=== PATIENT | female | born 1950 | race Caucasian/White ===

== ENCOUNTER → 2020-01-04 15:02 | Outpatient (CLI) | payer MEDICARE, OTHER, SELFPAY ==
--- NOTE | ~2020-01-04 | MM_ITS ---
EXAMINATION: MM screening shawn BI w oscar HISTORY: Screening TECHNIQUE: Craniocaudal and mediolateral oblique 3-D tomosynthesis images were obtained and synthetic 2-D images were generated. CAD analysis was submitted and interpreted. COMPARISON: Comparison to multiple prior studies sequentially, with oldest reviewed study dated 06/19. BREAST PARENCHYMAL COMPOSITION: The breasts are heterogeneously dense, which may obscure small masses . FINDINGS: There is no evidence of suspicious mass, calcification, or architectural distortion to sugg est malignancy in either breast. There has been no suspicious interval change. IMPRESSION: 1. No mammographic evidence of malignancy. 2. Recommend routine screening mammography in one year. BI-RADS Category 1: Negative Reviewed, dictated and finalized at location A.
== END ==
PROVIDERS: Visit Provider Obstetrics & Gynecology
DX: Z12.31 Encounter for screening mammogram for malignant neoplasm of breast (principal)
CPT/HCPCS: 77063; 77067

== ENCOUNTER 2020-04-24 11:12 | Outpatient (CLI) | payer MEDICARE, OTHER, SELFPAY ==
--- NOTE | ~2020-04-24 | XR_ITS ---
EXAMINATION: XR knee RT 3V DATE: 04/24/2020 11:33 INDICATION: Right knee pain. TECHNIQUE: 3 views of right knee were obtained. COMPARISON: None. FINDINGS: Bone alignment is normal. No fracture. There is moderate osteoarthritis of medial compartme nt and mild osteoarthritis of lateral and patellofemoral compartments. There is a moderate-sized knee joint effusion. IMPRESSION: 1. Moderate right knee osteoarthritis. 2. Moderate-sized right knee joint effusion. Reviewed, dictated and finalized at location A. N MALLOW DIPPER
== END 2020-04-24 11:13 | disposition home or self-care (01) ==
PROVIDERS: Family Provider Internal Medicine; PCP Internal Medicine; Visit Provider Internal Medicine
DX: M17.11 Unilateral primary osteoarthritis, right knee (principal); M25.461 Effusion, right knee
CPT/HCPCS: 73562

== ENCOUNTER 2020-05-27 13:37 | Outpatient (CLI) | payer MEDICARE, SELFPAY ==
--- NOTE | ~2020-05-27 | MR_ITS ---
EXAMINATION: MR knee RT wo con DATE: 05/27/2020 14:28 INDICATION: Internal derangement of the right knee with right knee pain post injury one month prior. TECHNIQUE: Magnetic resonance imaging (MRI) of the right knee was performed without intravenous contr ast. Sequences included coronal PD-weighted FSE, coronal PD-weighted FS FSE, sagittal T2-weighted FS E, sagittal PD-weighted FS FSE and axial PD weighted fat saturated FSE. COMPARISON: None. FINDINGS: Medial compartment: Complex tear of the medial meniscus. This includes a radial tear at the medially extruded meniscal anastasia dy with longitudinal horizontal tear extending posteriorly into the posterior horn. There is an addit ional longitudinal vertical tear along the free edge of the anterior horn. There is extensive full/ne ar full-thickness cartilage loss with underlying subarticular edema at the anterior to central weight bearing medial femoral condyle as well as along the anteromedial aspect of the medial tibial plateau. There is chondral swelling and mild surface regularity along the posterior weightbearing medial femo ral condyle. Also on the posterior weightbearing femoral condyle is a small focus of intrasubstance b listerlike chondral delamination. Small marginal osteophytes are present. Lateral compartment: Lateral meniscus is normal. There is deep chondral fissuring without degenerative subchondral changes at the central to medial aspect of the lateral tibial plateau. Cartilage along the weightbearing lat eral femoral condyle is relatively preserved. Small marginal osteophytes are present. Patellofemoral compartment: Full/near full-thickness chondral ulceration along the inferior margin of the lateral patellar facet, apical ridge and lateral aspects the medial facet with Underlying subarticular cystic change and surrounding marrow edema. More preserved cartilage thicknes s but with deep chondral fissuring extends cephalad along the apical ridge and medial facet. Partial- thickness chondral ulceration and fissuring at the medial trochlea with mild underlying subarticular cystic change and edema at the central medial trochlea. Small marginal osteophytes are present. Ligaments and tendons: Anterior and posterior cruciate ligaments are normal. The medial collateral ligament is normal. There is mild thickening and increased signal at the proximal fibular collateral ligament consistent with likely low-grade sprain of indeterminate chronicity. There is also moderate tendinopathy without disc rete tear at the insertion of the popliteal tendon. The extensor mechanism is normal. The visualized medial and lateral hamstring tendons as well as the iliotibial band are normal. Fluid: Small right knee joint effusion. No loose osteochondral bodies identified. Osseous/other: There is prominent marrow edema along the lateral nonarticular surface of the lateral femoral condyle without evident fracture line. Differential would include bone contusion due to direct trauma or rel ated to a patellar dislocation relocation injury although the edema appears more posterior than would be expected for a patellar dislocation/relocation injury and there is no definitive tear of the medi al patellar retinaculum. The duodenum is relatively prominent at the footplate of the popliteus tendo n suggesting this could also be related to an avulsive injury. A few small patchy regions of scattere d red marrow reexpansion in the distal femur and proximal tibia. No pathologic marrow replacing proce ss. IMPRESSION: 1. Prominent marrow edema along the lateral nonarticular margin of the lateral femoral condyle withou t evident fracture line. Differential would include bone contusion due to direct impaction or less li magaly a patellar dislocation/relocation injury or reactive edema related to a low-grade avulsive injur y to the popliteus tendon or fibular collateral ligament
== END 2020-05-27 13:38 | disposition home or self-care (01) ==
PROVIDERS: PCP Internal Medicine; Visit Provider Orthopaedic Surgery
DX: M23.91 Unspecified internal derangement of right knee (principal); M79.89 Other specified soft tissue disorders; S83.231A Complex tear of medial meniscus, current injury, right knee, initial encounter; M17.11 Unilateral primary osteoarthritis, right knee; M94.261 Chondromalacia, right knee; M25.461 Effusion, right knee
CPT/HCPCS: 73721

== ENCOUNTER 2020-05-28 09:12 | Outpatient (CLI) | payer MEDICARE, SELFPAY | END 2020-05-28 09:13 | disposition home or self-care (01) | LOC: ANHCOVIDVC 09:12 | PROVIDERS: PCP Internal Medicine | DX: Z23 Encounter for immunization (principal) | CPT/HCPCS: 0001A; 91300 ==

== ENCOUNTER 2020-06-18 09:09 | Outpatient (CLI) | payer MEDICARE, OTHER, SELFPAY | END 2020-06-18 09:10 | disposition home or self-care (01) | LOC: ANHCOVIDVC 09:09 | PROVIDERS: PCP Internal Medicine | DX: Z23 Encounter for immunization (principal) | CPT/HCPCS: 0002A; 91300 ==

== ENCOUNTER → 2020-08-06 10:48 | Outpatient (CLI) | payer MEDICARE, OTHER, SELFPAY ==
--- NOTE | ~2020-08-06 | DEXA_ITS ---
Bone Density Report Name: Blanca Oliveros Age: 70 Sex: Female Ethnicity: White Date of : 1950 Indication: osteopenia; height loss; postmenopausal Referring Provider: Shaun Byrd Study: Bone densitometry was performed. Exam Date: August 06, 2020 Accession number: [id number] Bone Density: Region BMD T-score Z-score Classification AP Spine (L1-L4) 0.797 -2.3 -0.2 Osteopenia Femoral Neck (Left) 0.571 -2.5 -0.8 Osteoporosis Total Hip (Left) 0.669 -2.2 -0.8 Osteopenia Femoral Neck (Right) 0.574 -2.5 -0.7 Osteoporosis Total Hip (Right) 0.650 -2.4 -0.9 Osteopenia Total Hip Mean 0.660 -2.3 -0.9 Osteopenia World Health Organization criteria for BMD impression classify patients as: Normal (T-score at or above -1.0), Osteopenia (T-score between -1.0 and -2.5), or Osteoporosis (T-score at or below -2.5). 10-year Fracture Risk: FRAX not reported because: Some T-score for Spine Total or Hip Total or Femoral Neck at or below -2.5 Previous Exams: Region Exam Age BMD T-score BMD Change BMD Change Date g/cm2 vs Baseline vs Previous AP Spine(L1-L4) 08/06/2020 70 0.797 -2.3 -0.197 -0.106* 05/09/2012 61 0.903 -1.3 -0.091 0.013 02/04/2010 59 0.890 -1.4 -0.104 -0.023* 12/04/2007 57 0.913 -1.2 -0.082 -0.022 01/05/2005 54 0.935 -1.0 -0.059 -0.059 09/03/2002 52 0.995 -0.5 Total Hip(Left) 08/06/2020 70 0.669 -2.2 -0.102 -0.042* 05/09/2012 61 0.711 -1.9 -0.060 -0.033* 02/04/2010 59 0.744 -1.6 -0.027 -0.032* 12/04/2007 57 0.776 -1.4 0.005 -0.068* 01/05/2005 54 0.844 -0.8 0.073 0.073 09/03/2002 52 0.771 -1.4 Total Hip(Right) 08/06/2020 70 0.650 -2.4 -0.109 -0.039* 05/09/2012 61 0.689 -2.1 -0.070 -0.029* 02/04/2010 59 0.718 -1.8 -0.041 -0.019 12/04/2007 57 0.737 -1.7 -0.022 -0.082* 01/05/2005 54 0.819 -1.0 0.060 0.060 09/03/2002 52 0.759 -1.5 *Denotes significance at 95% confidence level, LSC for AP Spine = 0.022 g/cm2, LSC for Total Hip = 0.027 g/cm2 Clinical Information Provided by Patient: Has used the following medications: Vitamin D, Calcium Patient maximum height was 67 Menopause Age: 56 Drinks caffeinated beverages Onset of menses at age 17 Number of children 1
== END ==
PROVIDERS: PCP Internal Medicine; Visit Provider Internal Medicine
DX: M81.0 Age-related osteoporosis without current pathological fracture (principal); M85.88 Other specified disorders of bone density and structure, other site; M85.852 Other specified disorders of bone density and structure, left thigh; M85.851 Other specified disorders of bone density and structure, right thigh
CPT/HCPCS: 77080

== ENCOUNTER → 2021-01-06 11:09 | Outpatient (CLI) | payer MEDICARE, OTHER, SELFPAY ==
--- NOTE | ~2021-01-06 | MM_ITS ---
EXAMINATION: MM screening shawn BI w oscar HISTORY: Screening TECHNIQUE: Craniocaudal and mediolateral oblique 3-D tomosynthesis images were obtained and synthetic 2-D images were generated. CAD analysis was submitted and interpreted. COMPARISON: Comparison to multiple prior studies sequentially, with oldest reviewed study dated 11/2014. BREAST PARENCHYMAL COMPOSITION: The breasts are heterogeneously dense, which may obscure small masses . FINDINGS: There are developing asymmetries in the upper outer quadrant of the right breast. The left breast is stable without evidence for malignancy. IMPRESSION: 1. Developing asymmetries of the right breast, upper outer quadrant. 2. Additional mammographic views and possible breast ultrasound are recommended. BI-RADS Category 0: Incomplete: Needs additional imaging evaluation. Reviewed, dictated and finalized at location A. IMPRESSION: 1. Developing asymmetries of the right breast, upper outer quadrant. 2. Additional mammographic views and possible breast ultrasound are recommended . BI-RADS Category 0: Incomplete: Needs additional imaging evaluation.
== END ==
PROVIDERS: Visit Provider Obstetrics & Gynecology
DX: Z12.31 Encounter for screening mammogram for malignant neoplasm of breast (principal); R92.8 Other abnormal and inconclusive findings on diagnostic imaging of breast
CPT/HCPCS: 77063; 77067

== ENCOUNTER → 2021-02-05 09:01 | Outpatient (CLI) | payer MEDICARE, OTHER, SELFPAY ==
--- NOTE | ~2021-02-05 | MMUS_ITS ---
EXAMINATION: MM diagnostic shawn RT w oscar, US breast RT limited HISTORY: Developing asymmetries reported in upper outer quadrant right breast on 01/06/2021 screening mammogram TECHNIQUE: Additional 3-D tomosynthesis images of the right breast were performed and synthetic 2-D i mages were generated. CAD analysis was submitted and interpreted. High resolution upper outer quadran t right breast ultrasound was performed. COMPARISON: 01/06/2021 bilateral screening mammogram FINDINGS: MAMMOGRAPHIC FINDINGS: No suspicious mass or architectural distortion, malignant calcification, skin thickening or retractio n or significant new or developing density is detected. ULTRASOUND: No suspicious mass or shadowing or other significant sonographic abnormality is identified in the upp er outer quadrant of right breast. IMPRESSION: 1. No mammographic evidence of malignancy 2. Routine mammographic screening is recommended BI-RADS Category 1: Negative Reviewed, dictated and finalized at location A. WORKER IMPRESSION: 1. No mammographic evidence of malignancy 2. Routine mammographic screening is recommended BI-RADS Category 1: Negative
== END ==
PROVIDERS: Visit Provider Obstetrics & Gynecology
DX: R92.8 Other abnormal and inconclusive findings on diagnostic imaging of breast (principal)
CPT/HCPCS: 76642; 77061; 77065; G0279

== ENCOUNTER 2022-04-07 10:38 | Outpatient (CLI) | payer MEDICARE, OTHER, SELFPAY ==
--- NOTE | 2022-04-07 10:55 | ECG_ITS ---
Measurements Intervals [place] Rate: 86 P: 66 CA: 159 QRS: 92 QRSD: 82 T: 51 QT: 364 QTc: 437 Interpretive Statements SINUS RHYTHM RIGHT AXIS DEVIATION BORDERLINE ECG NO PREVIOUS ECG AVAILABLE FOR COMPARISON Electronically Signed On 04-07-2022 11:48:37 RECOVERY SPECIALIST by Hilario Page D.O.
[2022-04-07 11:00] LABS: Hematocrit 41.4 % (37.0-47.0); Hemoglobin 13.8 g/dL (12.0-15.0)
[2022-04-07 11:09] LABS: Albumin Level 4.7 g/dL (3.5-5.1); Estimated Glomerular Filt Rate > 60; Glucose 98 mg/dL (65-110)
[2022-04-07 13:02] LABS: Urine Cotinine NEGATIVE
[2022-04-07 13:05] LABS: Hemoglobin A1C 5.9 % (<5.7)
== END 2022-04-07 10:39 | disposition home or self-care (01) ==
LOC: ANHLAB 10:41
PROVIDERS: PCP Internal Medicine; Visit Provider Orthopaedic Surgery
DX: M17.11 Unilateral primary osteoarthritis, right knee (principal); I10 Essential (primary) hypertension; Z86.73 Personal history of transient ischemic attack (TIA), and cerebral infarction without residual deficits; E78.2 Mixed hyperlipidemia; Z79.899 Other long term (current) drug therapy; E55.9 Vitamin D deficiency, unspecified; R94.31 Abnormal electrocardiogram [ECG] [EKG]
CPT/HCPCS: 80307; 82040; 82565; 82947; 83036; 85014; 85018; 93005

== ENCOUNTER → 2022-04-16 13:15 | Outpatient (CLI) | payer MEDICARE, OTHER, SELFPAY ==
--- NOTE | ~2022-04-16 | MM_ITS ---
EXAMINATION: MM screening shawn BI w oscar HISTORY: Screening mammogram TECHNIQUE: Craniocaudal and mediolateral oblique 3-D tomosynthesis images were obtained and synthetic 2-D images were generated. CAD analysis was submitted and interpreted. COMPARISON: 02/05/2021 diagnostic right mammogram and limited right breast ultrasound 01/06/2021, 01/14/2020 bilateral screening mammogram examinations BREAST PARENCHYMAL COMPOSITION: The breasts are heterogeneously dense, which may obscure small masses . FINDINGS: There is no evidence of suspicious mass, calcification, or architectural distortion to sugg est malignancy in either breast. There has been no suspicious interval change. IMPRESSION: 1. No mammographic evidence of malignancy. 2. Recommend routine screening mammography in one year. BI-RADS Category 1: Negative Reviewed, dictated and finalized at location B. WOOD SANDER
== END ==
PROVIDERS: PCP Internal Medicine Cardiovascular Disease; Visit Provider Internal Medicine
DX: Z12.31 Encounter for screening mammogram for malignant neoplasm of breast (principal)
CPT/HCPCS: 77063; 77067

== ENCOUNTER 2022-04-20 13:15 | Outpatient (CLI) | payer MEDICARE, OTHER, SELFPAY ==
--- NOTE | ~2022-04-20 | CT_ITS ---
EXAMINATION: CT LE RT wo con DATE: 04/20/2022 13:36 INDICATION: Right knee primary osteoarthritis. TECHNIQUE: Computed tomography (CT) of the right lower limb was performed without intravenous contras t. Automated exposure control and iterative reconstruction technique were employed. The dose-length p roduct was 1795.42 mGy-cm. COMPARISON: Right knee radiographs 10/19/2021 FINDINGS: There is mild right hip osteoarthritis. There is varus angulation at the knee. At the knee, there is severe osteoarthritis of medial and lateral compartments and moderate osteoarthritis of pat ellofemoral compartment. There is a small knee joint effusion. IMPRESSION: 1. Severe right knee osteoarthritis. 2. Small right knee joint effusion. 3. Mild right hip osteoarthritis. Reviewed, dictated and finalized at location A. INE BUFFER
== END 2022-04-20 13:16 | disposition home or self-care (01) ==
PROVIDERS: PCP Internal Medicine Cardiovascular Disease; Visit Provider Orthopaedic Surgery
DX: M17.11 Unilateral primary osteoarthritis, right knee (principal); M25.461 Effusion, right knee; M16.11 Unilateral primary osteoarthritis, right hip
CPT/HCPCS: 73700

== ENCOUNTER 2022-06-09 09:46 | Outpatient (CLI) | payer MEDICARE, OTHER, SELFPAY ==
[2022-06-09 11:05] LABS: Basophils Absolute Auto 0.1 K/mm3 (0.0-0.1); Basophils Percent Auto 0.9 % (0.2-1.2); Eosinophils Absolute Auto 0.1 K/mm3 (0-0.3); Eosinophils Percent Auto 1.5 % (0-4.4); Hematocrit 40.6 % (37.0-47.0); Hemoglobin 13.6 g/dL (12.0-15.0); Immature Granulocyte Absolute 0.02 K/mm3 (0.00-0.031); Immature Granulocyte Percent A 0.3 % (0-0.5); Lymphocytes Absolute Auto 1.28 K/mm3 (0.9-3.2); Lymphocytes Percent Auto 18.6 % (18.3-44.2); Mean Corpuscular HGB Conc 33.5 g/dl (32-36); Mean Corpuscular Hemoglobin 31.6 pg (26-34); Mean Corpuscular Volume 94.4 fl (80-100); Mean Platelet Volume 8.9 fl (7.4-10.4); Monocytes Absolute Auto 0.7 K/mm3 (0.1-0.6); Monocytes Percent Auto 10.2 % (2.6-8.5); Neutrophils Absolute Auto 4.7 K/mm3 (1.3-6.7); Neutrophils Percent Auto 68.5 % (45.5-73.1); Platelet Count Result 284 k/mm3 (150-375); Red Cell Distribution Width 13.7 % (11.5-14.5); White Blood Count 6.9 K/mm3 (4.5-10.0)
[2022-06-09 11:13] LABS: Albumin Level 4.8 g/dL (3.5-5.1); Estimated Glomerular Filt Rate > 60; Glucose 102 mg/dL (65-110)
[2022-06-09 11:14] LABS: Urine Cotinine NEGATIVE
== END 2022-06-09 09:47 | disposition home or self-care (01) ==
LOC: ANHSURGERY 09:50
PROVIDERS: PCP Internal Medicine; Visit Provider Orthopaedic Surgery
DX: M17.11 Unilateral primary osteoarthritis, right knee (principal); Z01.818 Encounter for other preprocedural examination
CPT/HCPCS: 80307; 82040; 82565; 82947; 85025; 87081

== ENCOUNTER 2022-07-06 00:59 | Day surgery (SDC) | payer MEDICARE, OTHER, SELFPAY ==
[2022-06-09 10:04] VITALS: BP 126/69; PULSE 81; RESP 16; TEMP 36.6; O2SAT 98; BMI 19.7
--- NOTE | 2022-06-09 10:12 | PC.NURSE ---
Report to the Outpatient Waiting Room, entrance under the green pavilion located off [facility], at time __8:30AM on date __07/06/22 . Planned Procedure Time: _10:30AM . Time changes happen often and if your time is changed the preop area will call you the afternoon before. - You and your visitor will be asked to self-screen and do not enter if you have any COVID symptoms. - Only one visitor is requested with a max of two and NO children visitors are allowed at this time. - The patient visitor may be requested to leave or wait in car when not with patient due to distancing restrictions. - A mask is optional within the hospital at this time. Patients may have clear liquids (water, carbonated beverages, clear teas, apple juice) until 3 hours prior to surgery with a maximum of 20 ounces. - No food from midnight until time of surgery Take the following medications with a SIP of water the morning of surgery: ___FELODIPINE DO NOT STOP ANY OF YOUR OTHER PRESCRIPTION MEDICATIONS PRIOR TO SURGERY ?EXCEPT THE FOLLOWING Medications to discontinue per physician __HOLD ELIQUIS PER DR TORRES, HOLD ALL VITAMINS/SUPPLEMENTS 3 DAYS PRE-OP- LAST DOSE 06/29/22_ Please no make-up, nail czech, hairspray, perfume, deodorant, or body powder the day of surgery. No jewelry (including any body piercings) or valuables the day of surgery, leave them at home. Please take a shower or bath the night before, or the morning of, surgery with an antibacterial soap. Wear comfortable, loose fitting clothing. Children are encouraged to wear pajamas. - Jewelry must be removed prior to entering the operating room. Rings and piercings that are not removed may be cut off. - The hospital will not accept responsibility for valuables. - Please leave all valuables, including medications, at home the day of surgery. If you are going home after surgery, a licensed armored car guard and driver must drive you home. - NO public transportation without another adult if you receive anesthesia. - We recommend that an adult stay with you for 24 hours following discharge. - We also recommend that you do not drive, make important decision, drink alcoholic beverages, or take any drugs that were not prescribed by your health care provider for at least 24 hours after your discharge time. If you or anyone in your household have experienced Covid symptoms in the past week, please notify your surgeon or the nurse liaison at the phone number below for possible testing. Telephone instructions given to ___PATIENT & HUSBAND and asked if any additional questions and then verbalized understanding. Patient advised to call surgeon office or pre surgery nurse liaison [phone] if any additional questions.
[2022-07-06] VITALS (14 sets, daily range): BP systolic 115–137; BP diastolic 62–77; PULSE 79–90; RESP 12–20; TEMP 36.2–36.9; O2SAT 96–100
--- NOTE | ~2022-07-06 | XR_ITS ---
EXAMINATION: [id number] DATE: 07/06/2022 12:37 INDICATION: Total right knee arthroplasty. Postop. TECHNIQUE: 2 views of right knee were obtained. COMPARISON: None. FINDINGS: There is a total right knee arthroplasty with patellar resurfacing in near-anatomic alignme nt. No fracture. There is gas in the joint and soft tissues, consistent with recent surgery. IMPRESSION: 1. Total right knee arthroplasty in near-anatomic alignment. Reviewed, dictated and finalized at location A.
--- NOTE | 2022-07-06 06:59 | WPDHPUPDATE1 ---
History and Physical Update Update Date/Time: 07/06/22 06:59 History and Physical has been reviewed, including an updated exam of the patient. There are NO changes in the patient's condition. Risks, benefits, and alternatives have been discussed and questions answered. Patient agrees to proceed with procedure.
--- NOTE | 2022-07-06 08:35 | WPDANESEPPF ---
Anes - Initial Pre Proc Eval Procedure: Operation Date: 07/06/22 10:30 Proposed Procedures p Right Custom Total Knee Arthroplasty - Sharath Bates MD Date/Time: 07/06/22 08:35 Surgeon: Sharath Bates MD Pre Op Diagnosis: primary OA right knee Patient Data Age: 72 Gender: F Height: 1.65 m Weight: 53.8 kg Last Vital Signs Temp 36.6 C 06/09/22 10:04 Pulse 81 06/09/22 10:04 Resp 16 06/09/22 10:04 BP 126/69 06/09/22 10:04 Pulse Ox 98 06/09/22 10:04 O2 Del Method Room Air 06/09/22 10:04 Allergies Allergy/AdvReac Type Severity Reaction Status Date / Time No Known Allergies Allergy Verified 06/09/22 11:08 Home Medications Medication Instructions Recorded Confirmed Type acetaminophen 650 mg 1,300 mg PO Q12H 06/09/22 06/09/22 History tablet,extended release calcium citrate 315 mg 2 tablet PO QAM 06/09/22 06/09/22 History calcium-vitamin D3 6.25 mcg (250 unit) tablet (Citracal + Vitamin D Maximum) felodipine 10 mg tablet,extended 10 mg PO QAM 06/09/22 06/09/22 History release 24 hr lisinopril 10 mg tablet 10 mg PO QAM 06/09/22 06/09/22 History apixaban 5 mg tablet (Eliquis) 5 mg PO BID #180 tabs 06/23/22 Rx atorvastatin 80 mg tablet 80 mg PO HS #90 tabs 07/02/22 Rx Patient hx anesthesia problems: none Family hx anesthesia problems: none Results Review: All pre-operative results and documents have been reviewed as part of the pre-operative evaluation. [facility] Past Medical History Medical History (Updated 07/06/22 @ 08:36 by Gamaliel Banks DO) Callus of foot Essential (primary) hypertension Hx of ischemic multifocal posterior circulation stroke 1995, right side weakness. No deficits now Hypovitaminosis D Mixed hyperlipidemia Osteopenia Post-menopausal Family History Family History Father Family history of diabetes mellitus in first degree relative Mother Family history of malignant neoplasm of breast in first degree relative Social History Social History Smoking status: Never smoker Alcohol intake: current Drinks per week: 1 Alcohol use details: social Substance use: never Substance use type: does not use Lack of Transportation: No Lack of Food: Never True Current Housing: I Have Housing Concerned About Future Housing: No Difficulty Paying Gas/Electric Bills: No Difficulty Paying for Meds: No Currently Unemployed: No Education: High School Diploma/GED Difficulty w/ Childcare or Family Care: No Living arrangements: with family Additional living arrangements comments: HUSB Spiritual care concerns: No Anes - Eval Final PreProcedure Day of Procedure 07/06/22 08:35 Patient weight: normal Heart: regular rate and rhythm Lungs: clear to auscultation Airway: Mallampati scale class II Neurological: alert and oriented Last oral intake: >/= 8 hours ASA classification: III Emergent: no Anesthetic plan: proceed Anesthesia type and monitoring: general LMA and standard monitoring Results Review: All pre-operative results and documents have been reviewed as part of the pre-operative evaluation. Informed Consent: The patient's anesthetic plan and its attendant risks and benefits were discussed with the patient/family/POA. Questions were solicited and answers provided to the satisfaction of the patient/family/POA.
--- NOTE | 2022-07-06 08:40 | WPDANESPNB ---
Anes - Peripheral Nerve Block Date/Time: 07/06/22 08:40 I have discussed with the patient/family/POA the placement of a peripheral nerve block for post-operative pain management, including associated risks, benefits, complications, and side effects. Alternative methods of post-operative analgesia were detailed. Questions were solicited and answers provided to the satisfaction of the patient/family/POA. Time-Out: A pre-procedural Time-Out was completed immediately before starting the procedure and confirmed: Patient Identification, Site, Procedure, Patient Position and the Availability of Requisite Equipment. Clinical Indications: Acute post-operative pain management requested by the operative surgeon. Nerve Block Insertion Note Anes-nerve block: adductor canal Patient position: supine Skin prep: chlorhexidine Needle: 22 gauge, stimulating, insulated echogenic needle. Needle length: 80 mm Technique: ultrasound Injectate: bupivacaine 0.5% with epi 5 mcg/ml (30cc - no epi) Observations: tolerated well Complications: none Procedure start time:: 935 Procedure end time:: 939
[2022-07-06] MEDS: LACTATED RINGERS 1,000 ML 30 ML IV CONT ×2 (09:00→12:21)
[2022-07-06] MEDS: ACETAMINOPHEN 500 MG TABLET 1000 MG PO ×3 (09:00→21:23)
[2022-07-06] MEDS: TRANEXAMIC ACID 1,000MG/ISO100 1,000 MG/100 ML BAG 200 MG IVPB (09:00)
[2022-07-06] MEDS: ceFAZolin 2 GM/D5W 50 ML 2 GM/50 ML BAG IVPB ×2 (10:10→17:32)
[2022-07-06] MEDS: GENTAMICIN BONE CEMENT REFOBACIN 1 EACH TOPICAL (11:10)
--- NOTE | 2022-07-06 12:53 | W.PM.PROC2 ---
Procedure Note - Detailed Date of Procedure 07/06/22 Pre-op Diagnosis primary OA right knee Post-op Diagnosis Same Procedure Performed Total knee arthroplasty, right knee. Surgeon Sharath Bates MD Anesthesia General and Regional (Subsartorial block.) Findings Good bone quality, moderate medial release. Description of Procedure Preoperative antibiotics were given. The limb was prepped and draped in the usual sterile fashion with a well-padded tourniquet high on the thigh. The limb was exsanguinated and the tourniquet inflated to 300 mmHg. A longitudinal incision was created just medial to the patella. A trivector approach to the knee was performed. Arthrotomy was taken down through the joint capsule. No significant releases were initially taken. The femur was exposed and the F1 jig was applied. The coring tool was used to remove the cartilage for the F2 jig to sit flush with the bone. The jig was pinned and the distal cut carefully taken. Caliper measurements confirmed appropriate bony resections according to the preoperative templated plan. The F4 cutting jig for the femur was applied, at the standard rotation. The AP and anterior chamfer cuts were taken. The F5 jig was applied and the posterior chamfer cuts were taken. The tibia was prepared using the T1 jig, after removing cartilage for the jig contact points. Proper alignment was checked with the alignment jaye. The tibia was cut using the T1u guide. Gap balancing was performed. Gap measurements were taken and the knee was trialed. Excellent alignment and soft tissue balancing was confirmed. The posterior cruciate ligament was recessed along the proximal tibia. The patella was cut for resurfacing. Three lug holes were drilled. Meniscal remnants were removed. The trial components were assembled. Excellent range of motion and proper soft tissue balancing were confirmed throughout the full range of motion. Patellar tracking was excellent. The knee was copiously irrigated periodically throughout the procedure. The real implants were cemented into position. Excess cement was carefully removed. The wound was closed in layers with interrupted #1 Vicryl suture, 2-0 strata fix suture, 0 strata fix suture, 2-0 strata fix suture. Steri-Strips placed on the skin with the knee flexed. Sterile bulky dressing applied. The patient was brought to the recovery room in stable condition. There were no complications. Implants [employer] total knee arthroplasty. Cemented. Cruciate retaining. 7 mm insert. 35 mm oval patella. Estimated Blood Loss -50.0 Drains No Complications No immediate complications Condition Stable Disposition PACU [facility] Billing Surgery - Charge Forward: Surgery Billing
--- NOTE | 2022-07-06 14:00 | PC.NURSE ---
This patient, Blanca Oliveros, was admitted to [facility] Surg Room 324-02. Patient/family oriented to hospital policies and general routines including ID bracelet, bed and alarms, visiting hours, pain management, procedures, bathroom and other care routines, personal items, smoking policy, room service/diet, and visiting hours. Information on how to activate the Rapid Response Team has been discussed. Patient/Family are encouraged to report perceived risks to care and to ask questions if they do not understand what they are told or what they should do.
[2022-07-06] MEDS: SODIUM CHLORIDE 0.9% IV 1,000 ML 125 ML IV CONT (15:22)
[2022-07-06] MEDS: SENNA/DOCUSATE SODIUM TABLET 2 TAB PO (18:07)
[2022-07-06] MEDS: ATORVASTATIN 40 MG TABLET 80 MG PO (21:24)
[2022-07-06] MEDS: FAMOTIDINE 20 MG TABLET PO (21:24)
[2022-07-07] MEDS: ceFAZolin 2 GM/D5W 50 ML 2 GM/50 ML BAG IVPB ×2 (01:56→09:09)
[2022-07-07 03:15] VITALS: BP 143/78; PULSE 77; RESP 16; TEMP 36.3; O2SAT 98
[2022-07-07] MEDS: ACETAMINOPHEN 500 MG TABLET 1000 MG PO (05:32)
[2022-07-07] MEDS: oxyCODONE HCL (*CRX) 5 MG TAB IR PO (05:36)
[2022-07-07 06:37] LABS: Basophils Absolute Auto 0.1 K/mm3 (0.0-0.1); Basophils Percent Auto 0.4 % (0.2-1.2); Hematocrit 34.2 % (37.0-47.0); Hemoglobin 11.2 g/dL (12.0-15.0); Immature Granulocyte Absolute 0.05 K/mm3 (0.00-0.031); Immature Granulocyte Percent A 0.4 % (0-0.5); Lymphocytes Absolute Auto 1.38 K/mm3 (0.9-3.2); Mean Corpuscular HGB Conc 32.7 g/dl (32-36); Mean Corpuscular Hemoglobin 32.5 pg (26-34); Mean Corpuscular Volume 99.1 fl (80-100); Mean Platelet Volume 8.9 fl (7.4-10.4); Monocytes Absolute Auto 1.3 K/mm3 (0.1-0.6); Monocytes Percent Auto 10.6 % (2.6-8.5); Neutrophils Absolute Auto 9.7 K/mm3 (1.3-6.7); Neutrophils Percent Auto 77.6 % (45.5-73.1); Platelet Count Result 247 k/mm3 (150-375); Red Blood Count 3.45 M/mm3 (4.2-5.4); Red Cell Distribution Width 13.8 % (11.5-14.5); White Blood Count 12.5 K/mm3 (4.5-10.0)
[2022-07-07 06:53] LABS: Anion Gap 2 mmol/L (8-16); Blood Urea Nitrogen 11 mg/dL (7-17); Carbon Dioxide 32 mmol/L (22-30); Chloride 99 mmol/L (98-107); Estimated CRCL calculation 54 ml/min; Estimated Glomerular Filt Rate > 60; Glucose 109 mg/dL (65-110); Potassium 4.5 mmol/L (3.4-5.0); Sodium 133 mmol/L (137-145)
[2022-07-07 07:15] VITALS: BP 119/60; PULSE 72; RESP 16; TEMP 36.4; O2SAT 99
--- NOTE | 2022-07-07 07:55 | PM.DS ---
DS: Admitting Diagnosis Discharge Date 07/07/22 Admitting Diagnosis OA knee Right DS: Discharge Diagnosis Discharge Diagnosis (1) Status post total right knee replacement: Code(s): Z96.651 - Presence of right artificial knee joint Status: Acute Assessment and Plan: Postop day 1: Right total knee arthroplasty. Patient tolerated procedure well. No complications. Pain manageable with pain medication. No numbness or tingling. We had a lengthy discussion regarding postoperative wound care, limitations, expectations, and exercises. Patient shows good understanding. He has had initial physical therapy and is tolerating it well. DVT prophylaxis: Eliquis 5 mg once a day for one week then resume normal twice a day dose. Pain medication: Percocet. Prednisone. Patient has followup appointment with Dr. Bates in 3 weeks. DS: Summary Hospital Course Reason for hospitalization: Total knee arthroplasty Hospital Course: Patient tolerated procedure well. Has had initial PT/OT. No complications. Pain well managed. Status at Discharge Functional status at discharge: uses cane/walker Overall status at discharge: patient is progressing back to baseline Time Spent with Patient Time attestation: Total time spent providing and/or coordinating discharge services: Exam Narrative: Normal weight female. Resting comfortably in chair. No acute distress. A&O x3. Wearing compression socks bilaterally. Dressing intact with no drainage. She did have some early bloody drainage. Dressing removed, removed saturated steri strips, cleaned with Betadine swabs, reapplied steri strips and Mepilex dressing. No bleeding at that time. Moderate swelling. Small area of ecchymosis. No erythema. No hematoma. Good early range of motion. Calf nontender. Neurologic status intact. No varicosities. Distal pulses palpable. DS: Data Data Completed and Pending Labs on day of discharge: Labs from last 24 hours 07/07/22 07/07/22 07/06/22 06:15 06:15 09:00 WBC 12.5 H RBC 3.45 L Hgb 11.2 L Hct 34.2 L MCV 99.1 MCH 32.5 MCHC 32.7 RDW 13.8 Plt Count 247 MPV 8.9 Immature Gran % (Auto) 0.4 Neut % (Auto) 77.6 H Lymph % (Auto) 11.0 L [place] % (Auto) 10.6 H Eos % (Auto) 0.0 Baso % (Auto) 0.4 Lymph # (Auto) 1.38 [place] # (Auto) 1.3 H Eos # (Auto) 0.0 Baso # (Auto) 0.1 Abs Immat Gran (auto) 0.05 H Absolute Neuts (auto) 9.7 H Absolute Nucleated RBC 0.0 Nucleated RBC % 0.0 Sodium 133 L Potassium 4.5 Chloride 99 Carbon Dioxide 32 H Anion Gap 2 L BUN 11 Creatinine 0.70 Estim Creat Clear Calc 54 Estimated GFR > 60 Glucose 109 Calcium 9.0 Blood Type A Positive Antibody Screen Negative Discharge Plan Discharge Patient Disposition: Home, Self-Care Discharge Instructions: See green instruction sheets Patient Instructions: Apixaban (By mouth), Pain Management in Older Adults (DC) Stand Alone Forms: General Discharge Instructions Follow-up/Referrals: Hollie Espino PA [Physician Security Field Supervisor] - Discharge Medications: New prednisone 5 mg tablet 5 mg PO DAILY 21 Days Qty: 21 0RF oxycodone-acetaminophen 5-325 mg tablet 1 - 2 tablet PO Q4-6H MDD 6 PRN (Reason: pain) Qty: 30 0RF Eliquis 5 mg tablet 5 mg PO ONCE 7 Days Qty: 7 0RF Rx Instructions: Take once a day for 1 week after surgery then resume twice a day dose. Continued acetaminophen 650 mg Tablet Extended Release 1,300 mg PO Q12H calcium citrate-vitamin D3 [Citracal + D Maximum] 315 mg-6.25 mcg (250 unit) Tablet 2 tablet PO QAM lisinopril 10 mg tablet 10 mg PO QAM Rx Instructions: replaces quinapril. felodipine 10 mg tablet extended release 24 hr 10 mg PO QAM atorvastatin 80 mg tablet 80 mg PO HS Qty: 90 1RF Held Eliquis 5 mg tablet 5 mg PO BID Qty: 180 1RF H
[2022-07-07] MEDS: FAMOTIDINE 20 MG TABLET PO (08:15)
[2022-07-07] MEDS: SENNA/DOCUSATE SODIUM TABLET 2 TAB PO (08:15)
[2022-07-07 08:42] VITALS: BP 135/64; PULSE 83; RESP 18; TEMP 36.2; O2SAT 99
[2022-07-07] MEDS: APIXABAN 2.5 MG TABLET PO (09:12)
[2022-07-07] MEDS: predniSONE 5 MG TABLET PO (09:12)
[2022-07-07] MEDS: FELODIPINE 5 MG TAB CR 10 MG PO (09:12)
[2022-07-07] MEDS: polyethylene glycoL 3350 17 GM POWD.PACK PO (09:13)
[2022-07-07] MEDS: lisinopriL 10 MG TABLET PO (09:13)
--- NOTE | 2022-07-07 11:25 | PC.NURSE ---
Patient A & O x4. No complaints of pain at this time. Went over d/c instructions. Patient and family verbalizes understanding. Discharging to home by private vehicle.
== END 2022-07-07 11:33 | disposition home or self-care (01) ==
LOC: ANHSURGERY 11:41 → ANH3MEDSUR 13:50
PROVIDERS: Physician Assistant Surgical; PCP Internal Medicine; Visit Provider Orthopaedic Surgery
PROC: (CPT 27447; principal; 2022-07-06 10:30)
DX: M17.11 Unilateral primary osteoarthritis, right knee (principal); G89.18 Other acute postprocedural pain; I10 Essential (primary) hypertension; E78.2 Mixed hyperlipidemia; E55.9 Vitamin D deficiency, unspecified; M85.80 Other specified disorders of bone density and structure, unspecified site; Z86.73 Personal history of transient ischemic attack (TIA), and cerebral infarction without residual deficits; Z79.01 Long term (current) use of anticoagulants
CPT/HCPCS: 27447; 64447; 36415; 73560; 80048; 85025; 86850; 86900; 86901; 97110; 97116; 97161; 97165; 97530; 97535; A9270; C1713; C1776; J0171; J0690; J1100; J1885; J2250; J2270; J2405; J2704; J2795; J3010; J7030; J7120; J7512

== ENCOUNTER 2023-01-11 00:28 | Day surgery (SDC) | payer MEDICARE, OTHER, SELFPAY ==
[2022-12-30 14:01] VITALS: BMI 18.6
[2023-01-11 06:22] VITALS: BP 154/82; PULSE 78; RESP 16; TEMP 36.2; O2SAT 98; BMI 18.5
[2023-01-11] MEDS: LACTATED RINGERS 1,000 ML 150 ML IV CONT (06:30)
--- NOTE | 2023-01-11 07:23 | PM.HPGS ---
History of Present Illness History of Present Illness Consent: Risks, benefits, and alternatives have been discussed and questions answered. Patient agrees to proceed with procedure. Chief complaint: other fecal abnormalities Narrative: Blanca Oliveros is a 72 year old female here with positive cologuard, last colonoscopy 2011 Review of Systems Constitutional: Constitutional: Denies headache(s) and Denies weakness Eyes: Eyes: Denies blurry vision ENT: Reports Normal hearing present, Denies headache(s) and Denies neck pain Cardiovascular: Cardiovascular: Denies chest pain and Denies dyspnea Respiratory: Respiratory: Denies dyspnea Gastrointestinal: Gastrointestinal: Reports no additional gastrointestinal complaints Genitourinary: Genitourinary: Denies dysuria Musculoskeletal: Musculoskeletal: Denies neck pain Integumentary/Breasts: Skin/Breast: Denies dry skin Neurologic: Reports Normal hearing present, Denies headache(s) and Denies weakness Psychiatric: Psychiatric: Denies anxiety Endocrine: Endocrine: Denies change in body appearance Hematologic/Lymphatic: Hematologic/Lymphatic: Denies easy bleeding Allergic/Immunologic: Allergic/Immunologic: Denies urticaria PMFSH Past Medical History Medical History Callus of foot Essential (primary) hypertension Hx of ischemic multifocal posterior circulation stroke 1995, right side weakness. No deficits now Hypovitaminosis D Mixed hyperlipidemia Osteopenia Painful total knee replacement, right Post-menopausal Surgical History Surgical History History of total right knee replacement (~07/06/22) Family History Family History Father Family history of diabetes mellitus in first degree relative Mother Family history of malignant neoplasm of breast in first degree relative Social History Social History Smoking status: Never smoker Alcohol intake: current Drinks per week: 1 Alcohol use details: social Substance use: never Substance use type: does not use Lack of Transportation: No Lack of Food: Never True Current Housing: I Have Housing Concerned About Future Housing: No Difficulty Paying Gas/Electric Bills: No Difficulty Paying for Meds: No Currently Unemployed: No Education: High School Diploma/GED Difficulty w/ Childcare or Family Care: No Living arrangements: with family Additional living arrangements comments: [facility] Spiritual care concerns: No Meds Home Medications and Allergies Home Medications Medication Instructions Recorded Confirmed Type calcium citrate 315 mg 2 tablet PO QAM 06/09/22 01/11/23 History calcium-vitamin D3 6.25 mcg (250 unit) tablet (Citracal + Vitamin D Maximum) felodipine 10 mg tablet,extended 10 mg PO QAM #90 tabs 10/08/22 01/11/23 Rx release 24 hr lisinopril 10 mg tablet 10 mg PO QAM #90 tabs 10/11/22 01/11/23 Rx acetaminophen 650 mg 1,300 mg PO Q12H 12/30/22 01/11/23 History tablet,extended release atorvastatin 80 mg tablet 80 mg PO HS #90 tabs 12/30/22 01/11/23 Rx apixaban 5 mg tablet (Eliquis) 5 mg PO BID #180 tabs 01/04/23 01/11/23 Rx Allergies Allergy/AdvReac Type Severity Reaction Status Date / Time No Known Allergies Allergy Verified 01/11/23 06:20 Vital Signs Vital Signs - 24 hr 01/11/23 06:22 Temperature 97.2 F L Pulse Rate 78 Respiratory Rate 16 Blood Pressure 154/82 H Pulse Oximetry 98 Oxygen Delivery Room Air Exam Const: General: comfortable and no acute distress HENMT: Face/Nose/Sinus: Normal nares present Eyes: General: appearance normal, both eyes and all related structures Neck: Neck: no JVD Resp: Auscultation: clear to auscultation bilaterally Cardio: Rate: regular rate Rhythm: regular rhythm GI: Inspe
[2023-01-11 07:45] VITALS: BP 96/60; PULSE 75; RESP 22; O2SAT 97
[2023-01-11 07:55] VITALS: BP 106/75; PULSE 73; RESP 21; O2SAT 99
[2023-01-11 08:05] VITALS: BP 119/68; PULSE 73; RESP 23; O2SAT 100
== END 2023-01-11 08:10 | disposition home or self-care (01) ==
PROVIDERS: PCP Family Medicine; Visit Provider Internal Medicine Gastroenterology
PROC: 0DJD8ZZ Inspection of Lower Intestinal Tract, Via Natural or Artificial Opening Endoscopic (ICD-10-PCS; CPT 45378; principal; 2023-01-11 07:30)
DX: R19.5 Other fecal abnormalities (principal); K63.5 Polyp of colon; K64.8 Other hemorrhoids; I10 Essential (primary) hypertension; E78.2 Mixed hyperlipidemia; E55.9 Vitamin D deficiency, unspecified; Z86.73 Personal history of transient ischemic attack (TIA), and cerebral infarction without residual deficits; Z79.01 Long term (current) use of anticoagulants
CPT/HCPCS: 45385; 88305; J2704; J7120

== ENCOUNTER 2023-04-12 09:53 | Outpatient (CLI) | payer MEDICARE, OTHER, SELFPAY ==
--- NOTE | 2023-04-12 10:52 | ECG_ITS ---
Measurements Intervals [place] Rate: 80 P: 65 MN: 160 QRS: 161 QRSD: 82 T: 60 QT: 356 QTc: 411 Interpretive Statements SINUS RHYTHM RSR' IN V1 OR V2, PROBABLY NORMAL VARIANT BASELINE ARTIFACT- I, II, III, AVR, AVL, AVF, V1-V6 NORMAL ECG COMPARED TO ECG 04/07/2022 11:17:51 NO SIGNIFICANT CHANGES Electronically Signed On 04-12-2023 11:45:03 PSYCHOLOGIST EDUCATIONAL by Hilario Page D.O.
[2023-04-12 11:07] LABS: Basophils Percent Auto 0.9 % (0.2-1.2); Eosinophils Absolute Auto 0.1 K/mm3 (0-0.3); Eosinophils Percent Auto 1.5 % (0-4.4); Hematocrit 41.3 % (37.0-47.0); Hemoglobin 13.2 g/dL (12.0-15.0); Immature Granulocyte Absolute 0.02 K/mm3 (0.00-0.031); Immature Granulocyte Percent A 0.4 % (0-0.5); Lymphocytes Absolute Auto 0.79 K/mm3 (0.9-3.2); Lymphocytes Percent Auto 16.8 % (18.3-44.2); Mean Corpuscular Hemoglobin 30.7 pg (26-34); Monocytes Absolute Auto 0.6 K/mm3 (0.1-0.6); Monocytes Percent Auto 13.4 % (2.6-8.5); Neutrophils Absolute Auto 3.1 K/mm3 (1.3-6.7); Platelet Count Result 282 k/mm3 (150-375); Red Cell Distribution Width 14.3 % (11.5-14.5); White Blood Count 4.7 K/mm3 (4.5-10.0)
[2023-04-12 12:54] LABS: MRSA (PCR) NOT DETECTED (NOT DETECTE)
== END 2023-04-12 09:54 | disposition home or self-care (01) ==
LOC: ANHSURGERY 09:59
PROVIDERS: PCP Family Medicine; Visit Provider Orthopaedic Surgery
DX: Z01.818 Encounter for other preprocedural examination (principal); M17.12 Unilateral primary osteoarthritis, left knee; I10 Essential (primary) hypertension
CPT/HCPCS: 36415; 85025; 87641; 93005

== ENCOUNTER 2023-05-05 00:37 | Day surgery (SDC) | payer MEDICARE, OTHER, SELFPAY ==
--- NOTE | 2023-04-12 09:46 | PC.NURSE ---
PRE-OP INSTRUCTIONS, PLEASE READ CAREFULLY Report to the Outpatient Waiting Room, entrance under the green pavilion located off [facility], at time _0600_ on date _05/05/23_. Planned Procedure Time: _0730_. PACK A SMALL OVERNIGHT BAG AND LEAVE IN THE CAR ALONG WITH YOUR WALKER Time changes happen often and if your time is changed the preop area will call you the afternoon before. - You and your visitor will be asked to self-screen and do not enter if you have any COVID symptoms. - A mask is optional within the hospital at this time. -VISITING HOURS 8AM-8PM Patients may have clear liquids (water, carbonated beverages, clear teas, apple juice) until 3 hours prior to surgery (0430 AM) with a maximum of 20 ounces. - No food from midnight until time of surgery Take the following medications with a SIP of water the morning of surgery: _FELODIPINE, & TYLENOL IF NEEDED_ DO NOT STOP ANY OF YOUR OTHER PRESCRIPTION MEDICATIONS PRIOR TO SURGERY ?EXCEPT THE FOLLOWING Medications to discontinue _ELIQUIS (APIXABAN) PER DR. TORRSE'S INSTRUCTIONS, Date to take last dose_ASK @ 04/25/23 APPT_ Please no make-up, nail qatari, hairspray, perfume, deodorant, or body powder the day of surgery. No jewelry (including any body piercings) or valuables the day of surgery, leave them at home. Please take a shower or bath the night before, or the morning of, surgery with an antibacterial soap. Wear comfortable, loose fitting clothing. - Jewelry must be removed prior to entering the operating room. Rings and piercings that are not removed may be cut off. - The hospital will not accept responsibility for valuables. - Please leave all valuables, including medications, at home the day of surgery. If you are going home after surgery, a licensed patient transportation driver must drive you home. - NO public transportation without another adult if you receive anesthesia. - We recommend that an adult stay with you for 24 hours following discharge. - We also recommend that you do not drive, make important decision, drink alcoholic beverages, or take any drugs that were not prescribed by your health care provider for at least 24 hours after your discharge time. Follow any additional instructions given to you from your surgeon. If you or anyone in your household have experienced Covid symptoms in the past week, please notify your surgeon or the nurse liaison at the phone number below for possible testing. Instructions given to _PATIENT_and asked if any additional questions and then verbalized understanding. Patient advised to call surgeon office or pre surgery nurse liaison [phone] if any additional questions.
[2023-04-12 10:12] VITALS: BMI 19.8
[2023-04-12 10:32] VITALS: BP 124/64; PULSE 82; RESP 18; TEMP 36.6; O2SAT 97
[2023-05-05] VITALS (10 sets, daily range): BP systolic 117–135; BP diastolic 57–73; PULSE 78–100; RESP 12–16; TEMP 36.6–36.7; O2SAT 96–100
--- NOTE | ~2023-05-05 | XR_ITS ---
EXAMINATION: [id number] DATE: 05/05/2023 09:59 INDICATION: Left partial knee arthroplasty TECHNIQUE: AP and lateral views of the left knee were obtained. COMPARISON: 11/22/2022 FINDINGS: Interval placement of a medial unicompartmental left knee arthroplasty. The components appear well se ated and alignment appears near-anatomic. Small marginal osteophytes at the lateral and patellofemora l compartments consistent with at least mild osteoarthritis. Expected postoperative intra-articular a nd soft tissue gas. IMPRESSION: 1. Expected appearance of a left knee medial unicompartmental arthroplasty, negative for postoperativ e purposes. Reviewed, dictated and finalized at location A. ORATE MANAGER IMPRESSION: 1. Expected appearance of a left knee medial unicompartmental arthroplasty, neg ative for postoperative purposes.
[2023-05-05] MEDS: LACTATED RINGERS 1,000 ML 30 ML IV CONT ×2 (06:15→09:46)
[2023-05-05] MEDS: ACETAMINOPHEN 500 MG TABLET 1000 MG PO (06:30)
--- NOTE | 2023-05-05 06:45 | WPDANESEPPF ---
Anes - Initial Pre Proc Eval Procedure: Operation Date: 05/05/23 07:30 Proposed Procedures p Left Partial Knee Arthroplasty - Sharath Bates MD Date/Time: 05/05/23 06:45 Surgeon: Sharath Bates MD Pre Op Diagnosis: primary OA left knee Patient Data Age: 72 Gender: F Height: 1.65 m Weight: 54.2 kg Last Vital Signs Temp 36.6 C 04/12/23 10:32 Pulse 82 04/12/23 10:32 Resp 18 04/12/23 10:32 BP 124/64 04/12/23 10:32 Pulse Ox 97 04/12/23 10:32 O2 Del Method Room Air 04/12/23 10:32 Allergies Allergy/AdvReac Type Severity Reaction Status Date / Time No Known Allergies Allergy Verified 04/25/23 10:04 Home Medications Medication Instructions Recorded Confirmed Type calcium citrate 315 mg 2 tablet PO QAM 06/09/22 04/25/23 History calcium-vitamin D3 6.25 mcg (250 unit) tablet (Citracal + Vitamin D Maximum) acetaminophen 650 mg 1,300 mg PO Q12H 12/30/22 04/25/23 History tablet,extended release atorvastatin 80 mg tablet 80 mg PO HS #90 tabs 12/30/22 04/25/23 Rx apixaban 5 mg tablet (Eliquis) 5 mg PO BID #180 tabs 01/04/23 04/25/23 Rx felodipine 10 mg tablet,extended 10 mg PO QAM #90 tabs 04/07/23 04/25/23 Rx release 24 hr lisinopril 10 mg tablet 10 mg PO QAM #90 tabs 04/11/23 04/25/23 Rx Patient hx anesthesia problems: none Family hx anesthesia problems: none Results Review: All pre-operative results and documents have been reviewed as part of the pre-operative evaluation. [facility] Past Medical History Medical History Callus of foot Essential (primary) hypertension Hx of ischemic multifocal posterior circulation stroke 1995, right side weakness. No deficits now Hypovitaminosis D Mixed hyperlipidemia Osteopenia Painful total knee replacement, right Post-menopausal Surgical History Surgical History History of total right knee replacement (~07/06/22) Family History Family History Father Family history of diabetes mellitus in first degree relative Mother Family history of malignant neoplasm of breast in first degree relative Social History Social History Smoking status: Never smoker Second hand tobacco smoke exposure: No Alcohol intake: current Drinks per week: 1 Alcohol use details: 1/MONTH Substance use: never Substance use type: does not use Do You Feel Safe in your Home?: Yes Lack of Transportation: No Lack of Food: Never True Current Housing: I Have Housing Concerned About Future Housing: No Difficulty Paying Gas/Electric Bills: No Difficulty Paying for Meds: No Currently Unemployed: No Education: High School Diploma/GED Difficulty w/ Childcare or Family Care: No Living arrangements: with family Additional living arrangements comments: HUSB Spiritual care concerns: No Anes - Eval Final PreProcedure Day of Procedure 05/05/23 06:45 Patient weight: normal Heart: regular rate and rhythm Lungs: clear to auscultation Airway: Mallampati scale class II Neurological: alert and oriented Last oral intake: >/= 8 hours ASA classification: III Emergent: no Anesthetic plan: proceed Anesthesia type and monitoring: general LMA and standard monitoring Results Review: All pre-operative results and documents have been reviewed as part of the pre-operative evaluation. Informed Consent: The patient's anesthetic plan and its attendant risks and benefits were discussed with the patient/family/POA. Questions were solicited and answers provided to the satisfaction of the patient/family/POA.
[2023-05-05] MEDS: TRANEXAMIC ACID 1,000MG/ISO100 1,000 MG/100 ML BAG 200 MG IVPB (07:00)
--- NOTE | 2023-05-05 07:18 | WPDHPUPDATE1 ---
History and Physical Update Update Date/Time: 05/05/23 07:18 History and Physical has been reviewed, including an updated exam of the patient. There are NO changes in the patient's condition. Risks, benefits, and alternatives have been discussed and questions answered. Patient agrees to proceed with procedure.
[2023-05-05] MEDS: ceFAZolin 2 GM/D5W 50 ML 2 GM/50 ML BAG IVPB (07:25)
--- NOTE | 2023-05-05 07:40 | WPDANESPNB ---
Anes - Peripheral Nerve Block Date/Time: 05/05/23 07:40 I have discussed with the patient/family/POA the placement of a peripheral nerve block for post-operative pain management, including associated risks, benefits, complications, and side effects. Alternative methods of post-operative analgesia were detailed. Questions were solicited and answers provided to the satisfaction of the patient/family/POA. Time-Out: A pre-procedural Time-Out was completed immediately before starting the procedure and confirmed: Patient Identification, Site, Procedure, Patient Position and the Availability of Requisite Equipment. Clinical Indications: Acute post-operative pain management requested by the operative surgeon. Nerve Block Insertion Note Anes-nerve block: adductor canal left Patient position: supine Skin prep: chlorhexidine Needle: 22 gauge, stimulating, insulated echogenic needle. Needle length: 80 mm Technique: ultrasound Injectate: bupivacaine 0.5% with epi 5 mcg/ml (30 cc) and dexamethasone (mg) (8) Observations: tolerated well Complications: none Procedure start time:: 714 Procedure end time:: 720
--- NOTE | 2023-05-05 09:37 | W.PM.PROC2 ---
Procedure Note - Detailed Date of Procedure 05/05/23 Pre-op Diagnosis primary OA left knee Post-op Diagnosis Same Procedure Performed Partial knee arthroplasty, left knee, medial compartment. Surgeon Sharath Bates MD Fence Making Machine Operator Hollie Espino PA-C Anesthesia General Description of Procedure The patient was given a general anesthetic. Preoperative antibiotics were given. The knee was prepped and draped in the usual sterile fashion. A longitudinal incision was created along the medial aspect of the patellar tendon. A minimally invasive optimized mid vastus approach was completed. No medial release was taken. The external alignment guide was used to cut the tibia with anatomic posterior slope. A 2 millimeter resection was taken. The spacer block technique was utilized to measure flexion and extension gaps after the osteophytes were removed. 1 mm secondary cut was taken on the tibia. After measuring gap difference is distal 5 mm cut was taken followed by the 2 mm pre cut on posterior condyle. The posterior and chamfer chamfer block was utilized for the last cuts. The femur and tibia were sized. Range of motion and gap balancing was assessed. This was tested with the 2 millimeter spacer. The bony surfaces were cleaned with lavaged. Lug holes were drilled. The real components were cemented into position. Excess cement was carefully removed. The tourniquet was released. Meticulous hemostasis was maintained. The wound was closed with interrupted 1 Vicryl suture followed by a running 0 Quill suture and 2-0 Quill suture. Steri-Strips are placed in the skin the patient was extubated and brought to recovery room in stable condition. There were no complications. Physician senior office support assistant sosa, Hollie Espino PA-C, required for surgery; including patient positioning, draping, tissue retraction, maintaining instrument position, cement removal, wound closure, and dressing placement. Implants Medacta Phong partial knee system size 2 femur and size 4 tibia. 9 mm polyethylene insert. Estimated Blood Loss 25 Tourniquet Time Total Tourniquet Time: 75 Drains No Complications No immediate complications Condition Stable Disposition PACU [facility] Billing Surgery - Charge Forward: Surgery Billing
[2023-05-05] MEDS: fentaNYL CITRATE INJ (*CRX) 100 MCG/2 ML VIAL 25 MCG IV PUSH ×4 (10:29→10:53)
--- NOTE | 2023-05-05 11:43 | SUR.PHASEII ---
PT/OT with patient in Phase 2 Recovery per MD orders
--- NOTE | 2023-05-05 11:57 | SUR.PHASEII ---
PT has evaluated pt and states they are good to discharge home. Pt. declined OT.
--- NOTE | 2023-05-05 12:01 | SUR.PHASEII ---
MD Bates contacted for clarification regarding Eliquis discharge instructions. Pt. is to take half a pill (2.5mg) twice daily for one week following surgery, then resume normal dose.
== END 2023-05-05 12:18 | disposition home or self-care (01) ==
PROVIDERS: PCP Nurse Practitioner; Visit Provider Orthopaedic Surgery
PROC: (CPT 27446; principal; 2023-05-05 07:30)
DX: M17.12 Unilateral primary osteoarthritis, left knee (principal); G89.18 Other acute postprocedural pain; I10 Essential (primary) hypertension; E78.2 Mixed hyperlipidemia; Z86.73 Personal history of transient ischemic attack (TIA), and cerebral infarction without residual deficits; Z79.01 Long term (current) use of anticoagulants
CPT/HCPCS: 27446; 64447; 73560; 97110; 97161; A9270; C1713; J0171; J0690; J1100; J1170; J1885; J2250; J2270; J2405; J2704; J2795; J3010; J7120

== ENCOUNTER 2023-05-25 11:00 | Outpatient (CLI) | payer MEDICARE, OTHER, SELFPAY ==
--- NOTE | ~2023-05-25 | XR_ITS ---
EXAMINATION: XR knee LT 3V DATE: 05/25/2023 11:14 INDICATION: Presence of left artificial knee joint. TECHNIQUE: 3 views of left knee were obtained. COMPARISON: Left knee radiographs 05/05/2023 FINDINGS: There is a medial compartment arthroplasty in near-anatomic alignment. No no fracture. No p eriprosthetic lucency to suggest loosening or infection. There is mild osteoarthritis of lateral and patellofemoral compartments. There is a small knee joint effusion. A calcification posterior to the k nee may be a loose body in a Pagan's cyst. IMPRESSION: 1. Medial compartment arthroplasty in near-anatomic alignment. 2. Mild osteoarthritis of lateral and patellofemoral compartments. 3. Small knee joint effusion. Reviewed, dictated and finalized at location A. WORKER
== END 2023-05-25 11:01 | disposition home or self-care (01) ==
LOC: ANHIMG 11:01
PROVIDERS: PCP Family Medicine; Visit Provider Physician Assistant Surgical
DX: M17.12 Unilateral primary osteoarthritis, left knee (principal); M25.462 Effusion, left knee; Z96.652 Presence of left artificial knee joint
CPT/HCPCS: 73562

== ENCOUNTER 2023-06-24 13:04 | Outpatient (CLI) | payer MEDICARE, OTHER, SELFPAY ==
--- NOTE | ~2023-06-24 | MM_ITS ---
EXAMINATION: MM screening shawn BI w oscar HISTORY: Screening mammogram TECHNIQUE: Craniocaudal and mediolateral oblique 3-D tomosynthesis images were obtained and synthetic 2-D images were generated. Bilateral rotated lateral CC views. CAD analysis was submitted and interp reted. COMPARISON: 04/16/2022 bilateral screening mammogram 02/05/2021 diagnostic right mammogram and limited right breast ultrasound, reported negative 01/06/2021 bilateral screening mammogram BREAST PARENCHYMAL COMPOSITION: The breasts are heterogeneously dense, which may obscure small masses . FINDINGS: There is no evidence of suspicious mass, calcification, or architectural distortion to sugg est malignancy in either breast. There has been no suspicious interval change. IMPRESSION: 1. No mammographic evidence of malignancy. 2. Recommend routine screening mammography in one year. BI-RADS Category 1: Negative Reviewed, dictated and finalized at location A.
== END 2023-06-24 13:05 ==
LOC: MICIMG 13:05
PROVIDERS: PCP Nurse Practitioner; Visit Provider Nurse Practitioner
DX: Z12.31 Encounter for screening mammogram for malignant neoplasm of breast (principal)
CPT/HCPCS: 77063; 77067

== ENCOUNTER 2024-09-09 11:07 | Emergency (ER) | payer MEDICARE, OTHER, SELFPAY ==
--- NOTE | 2024-09-09 11:13 | ED.URI ---
HPI - URI/Sore Throat General Chief Complaint: Upper Respiratory Infection Stated Complaint: sinus congestion Time Seen by Provider: 09/09/24 11:19 Source: patient, RN notes reviewed and old records reviewed Mode of arrival: ambulatory Limitations: no limitations History of Present Illness HPI Narrative: 74-year-old female presents to the [facility] with complaints of 2 week history of sinus congestion. Denies any other treatments. Has been taking multiple euie-lvh-isglptu products for last 2 weeks with no relief Related Data Home Medications ?Medication ?Instructions ?Recorded ?Confirmed ?Last Taken ?Type calcium 315 mg (as 2 tablet PO QAM 06/09/22 04/12/24 07/03/22 History citrate)-vitamin D3 6.25 mcg (250 unit) tablet (Citracal + Vitamin D Maximum) Allergies Allergy/AdvReac Type Severity Reaction Status Date / Time No Known Allergies Allergy Verified 09/09/24 11:16 Review of Systems Review of Systems: All systems reviewed & are unremarkable except as noted in HPI and below Constitutional: Constitutional: Reports no additional constitutional complaints ENT: Reports as per HPI, Reports sinus pain and Reports sinus pressure Cardiovascular: Cardiovascular: Reports no additional cardiovascular complaints, Denies chest pain and Denies dyspnea Respiratory: Respiratory: Reports no additional respiratory complaints, Denies chest congestion, Denies cough and Denies dyspnea Musculoskeletal: Musculoskeletal: Reports no additional musculoskeletal complaints Integumentary/Breasts: Skin/Breast: Reports system reviewed and no additional complaints, except as docu PMFSH Past Medical History Medical History Body mass index (BMI) less than 20 Painful total knee replacement, right Callus of foot Post-menopausal Osteopenia Essential (primary) hypertension Hx of ischemic multifocal posterior circulation stroke 1995, right side weakness. No deficits now Hypovitaminosis D Mixed hyperlipidemia Surgical History Surgical History History of total right knee replacement (~07/06/22) Family History Family History Father Family history of diabetes mellitus in first degree relative Diabetes mellitus Heart disease Mother Family history of malignant neoplasm of breast in first degree relative Diabetes mellitus Breast cancer Sibling , MVC Lung cancer Sibling No problems noted. Social History Social History Smoking status: Never smoker Second hand tobacco smoke exposure: No Alcohol intake: current Drinks per week: 1 Alcohol use details: 1/MONTH Substance use: never Substance use type: does not use Do You Feel Safe in your Home?: Yes Lack of Transportation: No Lack of Food: Never True Current Housing: I Have Housing Concerned About Future Housing: No Difficulty Paying Gas/Electric Bills: No Difficulty Paying for Meds: No Currently Unemployed: No Education: High School Diploma/GED Difficulty w/ Childcare or Family Care: No Living arrangements: with family Occupation/Education: retired 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 There is no relevant family history pertinent to the patient complaint. Exam Const: General: cooperative, no acute distress, well developed, alert, tired appearing, uncomfortable and well nourished Nutritional Appearance: well nourished Orientation/consciousness: patient oriented x3 Limitations: no limitations HENMT: Head: normal to inspection Ears: hearing grossly normal bilaterally, external ears normal, TM's normal bilaterally, EAC's normal, mastoids normal and no periauricular adenopathy Face/Nose/Sinus: Normal external nose present, No nasal discharge present, face symmetric and sinus tenderness (Frontal and maxillary) Mouth: Yes Normal oral and palatal mucosa present, Yes lip normal, Yes tongue normal and Yes moist mucous membranes Throat: posterior oropharynx normal, uvula midline, postnasal drainage and no uvular edema Eyes: General: appearance normal, both eyes and all related structures Alignment and Position: alignment normal Neck: Neck: normal visual inspection, full ROM, no lymphadenopathy and no meningeal signs Chest: Chest palpation & inspection: normal inspection of the chest Resp: Effort & Inspection: normal respiratory effort and able to speak in complete sentences Auscultation: clear to auscultation bilaterally, no crackles, no rales, no rhonchi and no wheezes Cardio: Rate: regular rate Skin: General skin exam: normal color and no rashes or lesions noted Neuro: General: patient oriented x3, gait normal, moves all extremities and no meningeal signs Cognition (Neuro): normal cognition Speech: normal speech Gait exam (Neuro): Normal gait present Extrem: General: normal to inspection, full ROM, capillary refill normal and normal gait Psych: Appearance: grossly normal and well kempt Mental Status: mental status grossly normal Speech and movement: Normal speech and movement present and Clear speech present Affect: normal affect Attitude: cooperative Course Course Level of Care: Express Care Visit Vital Signs Vital signs: Vital Signs Temperature 97.8 F 09/09/24 11:17 Pulse Rate 87 09/09/24 11:17 Respiratory Rate 16 09/09/24 11:17 Blood Pressure 124/74 09/09/24 11:17 Pulse Oximetry 97 09/09/24 11:17 Oxygen Delivery Room Air 09/09/24 11:17 Temperature 97.8 F 09/09/24 11:17 Pulse Rate 87 09/09/24 11:17 Respiratory Rate 16 09/09/24 11:17 Blood Pressure 124/74 09/09/24 11:17 Pulse Oximetry 97 09/09/24 11:17 Oxygen Delivery Room Air 09/09/24 11:17 Reviewed MDM - URI/Sore Throat MDM Narrative Medical decision making narrative: Patient sitting in exam. Patient is nontoxic, vitals are stable. Patient presents with 2 week history of sinus pain, pressure. Patient appropriate for outpatient treatment with possible bacterial sinusitis, discussed continuing [id number] treatments which she verbalized understand Discharge instructions reviewed with patient, as well as provided in writing per nursing staff. The instructions also include specific and strict return/GO TO THE ER as well as f/u information. All questions have been answered, and the patient deny any further questions with discharge and discharge plan. Some parts of this dictation were generated by voice recognition software and may contain typographical and/or grammatical inaccuracies. Differential Diagnosis Differential diagnosis: Likely upper respiratory infection, otitis media, sinusitis, viral infection, bronchitis, influenza and pharyngitis Critical Care Time Critical Care Time Critical Care Time: No Discharge Plan Discharge Clinical Impression: Sinusitis Qualifiers: Sinusitis location: pansinusitis Chronicity: acute Recurrence: not specified as recurrent Qualified Code(s): J01.40 - Acute pansinusitis, unspecified Patient Disposition: Home Condition: Stable Instructions: Antibiotic Form, Sinusitis (ED) Additional Instructions: It is very important to treat your symptoms. Drink plenty of water, Gatorade, Pedialyte, ice pops or Jell-O. -Alternate Tylenol and Motrin per package directions for fever or pain. You can alternate every 4 hours -Antihistamine medication such as Zyrtec/Claritin/Josefina during the day can help improve symptoms. -doing daily nasal irrigations can help relieve pressure your sinuses. Things like a Neti pot -Use Flonase twice a day for 5 days then daily to help reduce the inflammation and dry up your sinuses. -You can also use Mucinex. Be sure to drink plenty of water with this medication at least 8 ounces with every dose and it is important to drink 8 to 10 glasses of water per day. Water is a natural decongestant -Eat and drink things that are easy to swallow, like tea or soup, or popsicles. -Oral rinses such as: Salt water gargles and/or may use topical anesthetic (eg. Chloraseptic spray) or lozenges to relieve dryness or throat pain). -Frequent hand washing or hand purchasing officer is one of the best ways to prevent spread of infection. -Using a vaporizer or humidifier at night will also help thin secretions and help with coughing up phlegm. -Follow up with primary care provider in 7-10 days if condition is not improving - For new or worsening symptoms go directly to the nearest ER Patient Language: Armenian Prescriptions: New amoxicillin-pot clavulanate 875-125 mg tablet 1 tablet PO Q12H Qty: 14 0RF No Action calcium citrate-vitamin D3 [Citracal + D Maximum] 315 mg-6.25 mcg (250 unit) Tablet 2 tablet PO QAM felodipine 10 mg tablet extended release 24 hr 10 mg PO QAM Qty: 90 1RF lisinopril 10 mg tablet 10 mg PO QAM Qty: 90 1RF Rx Instructions: replaces quinapril. atorvastatin 80 mg tablet 80 mg PO HS Qty: 90 1RF Eliquis 5 mg tablet See Rx Instructions .ROUTE .COMPLEX Qty: 180 1RF Dose Instruction: TAKE 1 TABLET BY MOUTH TWICE DAILY Rx Instructions: TAKE 1 TABLET BY MOUTH TWICE DAILY Follow-up/Referrals: Guillermo Craft DO [Primary Care Provider] - 1 Week ([facility] care follow up ) Time of Disposition: 11:28
[2024-09-09 11:17] VITALS: BP 124/74; PULSE 87; RESP 16; TEMP 36.6; O2SAT 97
== END 2024-09-09 11:35 | disposition home or self-care (01) ==
PROVIDERS: Emergency Provider Nurse Practitioner; PCP Internal Medicine
DX: J01.40 Acute pansinusitis, unspecified (principal); I10 Essential (primary) hypertension; E78.2 Mixed hyperlipidemia; E55.9 Vitamin D deficiency, unspecified; M85.80 Other specified disorders of bone density and structure, unspecified site; Z86.73 Personal history of transient ischemic attack (TIA), and cerebral infarction without residual deficits; Z96.651 Presence of right artificial knee joint
CPT/HCPCS: 99213; G0463

== ENCOUNTER 2024-09-27 13:46 | Outpatient (CLI) | payer MEDICARE, OTHER, SELFPAY ==
--- NOTE | ~2024-09-27 | MM_ITS ---
EXAMINATION: MM screening shawn BI w oscar HISTORY: Screening mammogram, family history of breast cancer in her mother. TECHNIQUE: Craniocaudal and mediolateral oblique 3-D tomosynthesis images were obtained and synthetic 2-D images were generated. CAD analysis was submitted and interpreted. COMPARISON: 06/24/2023, 04/16/2022 BREAST PARENCHYMAL COMPOSITION:Dense: The breasts are heterogeneously dense, which may obscure small masses. FINDINGS: No suspicious mass, calcification, or architectural distortion are identified in either camila ast to suggest malignancy. There has been no suspicious interval change. IMPRESSION: No mammographic evidence of malignancy. Recommend routine screening mammography in one year. BI-RADS Category 1: Negative Reviewed, dictated and finalized at location .
== END 2024-09-27 13:47 | disposition home or self-care (01) ==
LOC: MICIMG 13:50
PROVIDERS: PCP Nurse Practitioner; Visit Provider Nurse Practitioner
DX: Z12.31 Encounter for screening mammogram for malignant neoplasm of breast (principal); Z80.3 Family history of malignant neoplasm of breast
CPT/HCPCS: 77063; 77067

== ENCOUNTER 2025-03-06 18:50 | Emergency (ER) | payer MEDICARE, OTHER, SELFPAY ==
[2025-03-06] VITALS (7 sets, daily range): BP systolic 123–158; BP diastolic 66–86; PULSE 74–83; RESP 14–22; TEMP 36.9; O2SAT 98–100
--- NOTE | ~2025-03-06 | XR_ITS ---
EXAMINATION: XR chest 1V DATE: 03/06/2025 19:21 INDICATION: Hip fracture. TECHNIQUE: A single frontal view of the chest was obtained. COMPARISON: None. FINDINGS: Heart size is normal. Atherosclerotic aorta. Lungs are clear. IMPRESSION: 1. No acute pulmonary findings. Atherosclerotic aorta. Reviewed, dictated and finalized at location T. PAD GR[employer]ER
--- NOTE | ~2025-03-06 | XR_ITS ---
EXAMINATION: XR hip LT 2V w AP pelvis DATE: 03/06/2025 19:21 INDICATION: Trauma. TECHNIQUE: AP pelvis, 2 views of left hip were obtained. COMPARISON: None. FINDINGS: Diffusely osteopenic bones. Comminuted intertrochanteric fracture of the proximal left femur at the left hip. Mild distraction of the lesser trochanter fragment. IMPRESSION: 1. Acute comminuted intertrochanteric fracture of proximal left femur. Osteopenic bones. Reviewed, dictated and finalized at location T. [employer] IMPRESSION: 1. Acute comminuted intertrochanteric fracture of proximal left femur. Osteopen ic bones.
--- NOTE | ~2025-03-06 | CT_ITS ---
EXAMINATION: CT brain wo con DATE: 03/06/2025 19:25 INDICATION: Trauma due to fall. On blood thinners. TECHNIQUE: Computed tomography (CT) of the head was performed without intravenous contrast. The mA was adjusted according to patient size. Iterative reconstruction technique was employed. The dose-length product was 529.67 mGy-cm. COMPARISON: None FINDINGS: No acute intracranial bleed. No extra-axial collections. Age- appropriate cerebral atrophy. No acute cranial fractures. IMPRESSION: 1. No acute intracranial lesions. No acute cranial fractures. Reviewed, dictated and finalized at location T. LE EXAMINER
--- NOTE | 2025-03-06 18:54 | ECG_ITS ---
Test Date: 2025-03-06 20:08:36 Measurements Intervals [place] Rate: 73 P: 67 [place]: 178 QRS: 86 QRSD: 78 T: 62 QT: 361 QTc: 400 Interpretive Statements SINUS RHYTHM CONSIDER RGHT VENTRICULAR CONDUCTION DELAY BORDERLINE ECG No previous ECG available for comparison Electronically Signed On 03-07-2025 06:08:19 [employer] by Hilario Page D.O.
--- NOTE | 2025-03-06 19:05 | ED_ITS ---
HPI - Fall General Chief Complaint: Fall <Alona Gaines APRN - Last Filed: 03/06/25 21:52> Stated Complaint: GLF, L HIP PAIN W/ SHORTENING <Alona Gaines APRN - Last Filed: 03/06/25 21:52> Time Seen by Provider: 03/06/25 18:54 <Alona Gaines APRN - Last Filed: 03/06/25 21:52> History of Present Illness HPI Narrative: Patient is a 74-year-old female who presents to the ER after sustaining a fall. She reports she was walking her daughter's driveway when she tripped and landed on her left side. Patient reports she was unable to get up on her own. At time of examination, patient endorses pain to her left hip. She endorses a history of a stroke and bilateral knee replacements. Patient reports she is on Eliquis. She denies any head injury, neck pain, back pain, urinary symptoms or loss of consciousness. <Alona Gaines APRN - Last Filed: 03/06/25 21:52> Related Data Home Medications: Home Medications ?Medication ?Instructions ?Recorded ?Confirmed ?Last Taken ?Type calcium 315 mg (as 2 tablet PO QAM 06/09/2212/2007/03/22 History citrate)-vitamin D3 6.25 mcg (250 unit) tablet (Citracal + Vitamin D Maximum) <Alona Gaines APRN - Last Filed: 03/06/25 21:52> Allergies/Adverse Reactions: Allergies Allergy/AdvReac Type Severity Reaction Status Date / Time No Known Allergies Allergy Verified 03/06/25 19:06 <Alona Gaines APRN - Last Filed: 03/06/25 21:52> [facility] Past Medical History Medical History: Medical History (Updated 03/06/25 @ 21:52 by Alona aGines APRN) Osteopenia Body mass index (BMI) less than 20 Painful total knee replacement, right Callus of foot Post-menopausal Essential (primary) hypertension Hx of ischemic multifocal posterior circulation stroke 1995, right side weakness. No deficits now Hypovitaminosis D Mixed hyperlipidemia <Alona Gaines APRN - Last Filed: 03/06/25 21:52> Surgical History Surgical History: Surgical History (Updated 03/06/25 @ 21:52 by Alona Gaines APRN) History of total right knee replacement (~07/06/22) <Alona Gaines APRN - Last Filed: 03/06/25 21:52> Family History Family History: Family History Father Family history of diabetes mellitus in first degree relative Diabetes mellitus Heart disease Mother Family history of malignant neoplasm of breast in first degree relative Diabetes mellitus Breast cancer Sibling , MVC Lung cancer Sibling No problems noted. <Alona Gaines APRN - Last Filed: 03/06/25 21:52> Social History Social History: Social History Smoking status: Never smoker Second hand tobacco smoke exposure: No Alcohol intake: current Drinks per week: 1 Alcohol use details: 1/MONTH Substance use: never Substance use type: does not use Lack of Transportation: No Lack of Food: Never True Current Housing: I Have Housing Concerned About Future Housing: No Difficulty Paying Gas/Electric Bills: No Difficulty Paying for Meds: No Currently Unemployed: No Education: High School Diploma/GED Difficulty w/ Childcare or Family Care: No Living arrangements: with family Occupation/Education: retired 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 HEAD: Normocephalic, atraumatic. NECK: Supple. No adenopathy, no masses. RESPIRATORY: Airway patent, respirations nonlabored. Clear to auscultation bilaterally, no rales, rhonchi, wheezing. CARDIOVASCULAR: Regular rate and rhythm without murmurs, rubs, or gallops. Peripheral pulses 2+ and equal bilaterally. ABDOMINAL: Soft, nontender, nondistended, no hepatosplenomegaly. Normoactive BS. MUSCULOSKELETAL: Moves all extremities. Strength/ROM intact without gross deformities. External rotation L lower leg, Pain with manipulation, external rotation and internal rotation SKIN: Warm, dry, normal color. No rashes. NEURO: A&O X3. Speech clear. Cranial nerves II-XII intact. No ataxic movements. PSYCHIATRIC: Appropriate mood and affect. Normal interaction. <Alona Gaines APRN - Last Filed: 03/06/25 21:52> Course QUALITY CONSULTANT/PA Physician Supervision This visit was performed by both a physician and an APC; I performed all aspects of the medical decision making component of this evaluation as documented. <Liz Toledo MD - Last Filed: 03/06/25 21:40> Vital Signs Vital signs: Vital Signs Pulse Rate 79 03/06/25 18:49 Respiratory Rate 14 03/06/25 18:49 Blood Pressure 158/82 H 03/06/25 18:49 Pulse Oximetry 100 03/06/25 18:49 Oxygen Delivery Room Air 03/06/25 18:49 Temperature 36.9 C 03/06/25 20:01 Pulse Rate 74 03/06/25 20:01 Respiratory Rate 17 03/06/25 20:01 Blood Pressure 147/86 H 03/06/25 20:01 Pulse Oximetry 100 03/06/25 20:01 Oxygen Delivery Room Air 03/06/25 18:49 <Alona Gaines APRN - Last Filed: 03/06/25 21:52> Vital Signs Pulse Rate 79 03/06/25 18:49 Respiratory Rate 14 03/06/25 18:49 Blood Pressure 158/82 H 03/06/25 18:49 Pulse Oximetry 100 03/06/25 18:49 Oxygen Delivery Room Air 03/06/25 18:49 Temperature 36.9 C 03/06/25 20:01 Pulse Rate 74 03/06/25 20:01 Respiratory Rate 17 03/06/25 20:01 Blood Pressure 147/86 H 03/06/25 20:01 Pulse Oximetry 100 03/06/25 20:01 Oxygen Delivery Room Air 03/06/25 18:49 <Liz Toledo MD - Last Filed: 03/06/25 21:40> [facility] MDM Narrative Medical decision making narrative: Patient is a 74-year-old female who presents to the ER after sustaining a fall. She reports she was walking her daughter's driveway when she tripped and landed on her left side. Patient reports she was unable to get up on her own. At time of examination, patient endorses pain to her left hip. She endorses a history of a stroke and bilateral knee replacements. Patient reports she is on Eliquis. She denies any head injury, neck pain, back pain, urinary symptoms or loss of consciousness. Labs Ordered: CBC, CMP, PTT, INR, type and screen Imaging Ordered: Left hip x-ray, chest x-ray, CT brain Medications Ordered: Morphine 2 mg IV Results: Pt's L hip x-ray indicates Diffusely osteopenic bones. Comminuted intertrochanteric fracture of the proximal left femur at the left hip. Mild distraction of the lesser trochanter fragment. Diagnosis: L femur fracture Consults: 1929- Spoke with Dr. Up, orthopedic surgeon, who reports he will review pt's images and call back. 1944- Dr. Up advised pt should be transferred to a trauma center for further evaluation and treatment. 2029- Spoke with orthopedic surgery, Dr. Matthew, at [facility] who reports they do not have anyone to provide the surgical intervention at [facility] that pt requires. He requests to speak with orthopedic surgeon, Dr. Up. 2139: Will be ER to ER transfer. 2149: Pt was accepted in [facility]'s ER by Dr. Weir. She will be transported via EMS. Orthopedic surgery will consult on pt once she arrives. MDM: Results of imaging and lab work shared with patient and her family. It was advised patient be admitted to a tertiary care hospital for further evaluation and treatment. Patient and her family verbalized understanding and are in agreement with plan. <Alona Gaines, [employer] LETTER [employer]ER - Last Filed: 03/06/25 21:52> Patient is a 74-year-old female who presents to the ER after sustaining a fall. She reports she was walking her daughter's driveway when she tripped and landed on her left side. Patient reports she was unable to get up on her own. At time of examination, patient endorses pain to her left hip. She endorses a history of a stroke and bilateral knee replacements. Patient reports she is on Eliquis. She denies any head injury, neck pain, back pain, urinary symptoms or loss of consciousness. Labs Ordered: CBC, CMP, PTT, INR, type and screen Imaging Ordered: Left hip x-ray, chest x-ray, CT brain Medications Ordered: Morphine 2 mg IV Results: Pt's L hip x-ray indicates Diffusely osteopenic bones. Comminuted intertrochanteric fracture of the proximal left femur at the left hip. Mild distraction of the lesser trochanter fragment. Diagnosis: L femur fracture Consults: 1929- Spoke with Dr. Up, orthopedic surgeon, who reports he will review pt's images and call back. 1944- Dr. Up advised pt should be transferred to a trauma center for further evaluation and treatment. 2029- Spoke with orthopedic surgery at [facility] who reports they do not have anyone to provide the surgical intervention pt requires. He requests to speak with orthopedic surgeon, Dr. Up. 2139: Will be ER to ER transfer. <Liz Toledo MD - Last Filed: 03/06/25 21:40> Differential Diagnosis Differential Diagnosis: left pelvis fracture, left hip fracture, left femur fracture <Alona Gaines APRN - Last Filed: 03/06/25 21:52> Lab Data MDM Lab Attestation statement: I personally reviewed the patient's lab results. <Alona Gaines APRN - Last Filed: 03/06/25 21:52> Result diagrams: 03/06/25 19:35 03/06/25 19:35 <Alona Gaines APRN - Last Filed: 03/06/25 21:52> Labs: Lab Results 03/06/25 03/06/25 Range/Units 19:35 20:01 WBC 6.6 (4.5-10.0) K/mm3 RBC 4.14 L (4.2-5.4) M/mm3 Hgb 13.1 (12.0-15.0) g/dL Hct 39.2 (37.0-47.0) % MCV 94.7 (80-100) fl MCH 31.6 (26-34) pg MCHC 33.4 (32-36) g/dl RDW 13.5 (11.5-14.5) % Plt Count 298 (150-375) k/mm3 MPV 8.8 (7.4-10.4) fl Immature Gran % (Auto) 0.3 (0-0.5) % Neut % (Auto) 64.6 (45.5-73.1) % Lymph % (Auto) 19.1 (18.3-44.2) % Power % (Auto) 10.1 H (2.6-8.5) % Eos % (Auto) 5.1 H (0-4.4) % Baso % (Auto) 0.8 (0.2-1.2) % Lymph # (Auto) 1.26 (0.9-3.2) K/mm3 Power # (Auto) 0.7 H (0.1-0.6) K/mm3 Eos # (Auto) 0.3 (0-0.3) K/mm3 Baso # (Auto) 0.1 (0.0-0.1) K/mm3 Abs Immat Gran (auto) 0.02 (0.00-0.031) K/mm3 Absolute Neuts (auto) 4.3 (1.3-6.7) K/mm3 Absolute Nucleated RBC 0.000 (0.0-0.012) K/mm3 Nucleated RBC % 0.0 (0.0-0.2) % PT 13.3 (11.1-14.7) Seconds INR 1.0 APTT 28.1 (22.3-36.8) Seconds Sodium 126 L (137-145) mmol/L Potassium 4.1 (3.4-5.0) mmol/L Chloride 95 L (98-107) mmol/L Carbon Dioxide 26 (22-30) mmol/L Anion Gap 5 (4-12) mmol/L BUN 18 H (7-17) mg/dL Creatinine 0.90 (0.7-1.0) mg/dL Estim Creat Clear Calc 44 ml/min Estimated GFR > 60 (59 - ) Glucose 145 H (65-110) mg/dL Calcium 9.3 (8.4-10.2) mg/dL Total Bilirubin 0.4 (0.2-1.3) mg/dL AST 33 (14-36) U/L ALT 17 (6-35) U/L Alkaline Phosphatase 82 (38-126) U/L Total Protein 7.5 (6.3-8.2) g/dL Albumin 4.6 (3.5-5.1) g/dL Urine Color Yellow (Yellow) Urine Appearance Clear (Clear) Urine pH 6.5 (5.0-9.0) Ur Specific [place] 1.016 (1.001-1.035) Urine Protein Negative (Negative) mg/dL Urine Glucose (UA) Negative (Negative) mg/dL Urine Ketones Negative (Negative) mg/dL Ur Blood (Man) Negative (Negative) Urine Nitrate Negative (Negative) Urine Bilirubin Negative (Negative) Urine Urobilinogen 0.2 (<2.0) mg/dL Leukocyte Esterase Rfl Negative (Negative) FREDO/UL Blood Type A Positive Antibody Screen Negative <Alona Gaines, [employer] LETTER CARRIER - Last Filed: 03/06/25 21:52> Lab Results 03/06/25 03/06/25 Range/Units 19:35 20:01 WBC 6.6 (4.5-10.0) K/mm3 RBC 4.14 L (4.2-5.4) M/mm3 Hgb 13.1 (12.0-15.0) g/dL Hct 39.2 (37.0-47.0) % MCV 94.7 (80-100) fl MCH 31.6 (26-34) pg MCHC 33.4 (32-36) g/dl RDW 13.5 (11.5-14.5) % Plt Count 298 (150-375) k/mm3 MPV 8.8 (7.4-10.4) fl Immature Gran % (Auto) 0.3 (0-0.5) % Neut % (Auto) 64.6 (45.5-73.1) % Lymph % (Auto) 19.1 (18.3-44.2) % Power % (Auto) 10.1 H (2.6-8.5) % Eos % (Auto) 5.1 H (0-4.4) % Baso % (Auto) 0.8 (0.2-1.2) % Lymph # (Auto) 1.26 (0.9-3.2) K/mm3 Power # (Auto) 0.7 H (0.1-0.6) K/mm3 Eos # (Auto) 0.3 (0-0.3) K/mm3 Baso # (Auto) 0.1 (0.0-0.1) K/mm3 Abs Immat Gran (auto) 0.02 (0.00-0.031) K/mm3 Absolute Neuts (auto) 4.3 (1.3-6.7) K/mm3 Absolute Nucleated RBC 0.000 (0.0-0.012) K/mm3 Nucleated RBC % 0.0 (0.0-0.2) % PT 13.3 (11.1-14.7) Seconds INR 1.0 APTT 28.1 (22.3-36.8) Seconds Sodium 126 L (137-145) mmol/L Potassium 4.1 (3.4-5.0) mmol/L Chloride 95 L (98-107) mmol/L Carbon Dioxide 26 (22-30) mmol/L Anion Gap 5 (4-12) mmol/L BUN 18 H (7-17) mg/dL Creatinine 0.90 (0.7-1.0) mg/dL Estim Creat Clear Calc 44 ml/min Estimated GFR > 60 (59 - ) Glucose 145 H (65-110) mg/dL Calcium 9.3 (8.4-10.2) mg/dL Total Bilirubin 0.4 (0.2-1.3) mg/dL AST 33 (14-36) U/L ALT 17 (6-35) U/L Alkaline Phosphatase 82 (38-126) U/L Total Protein 7.5 (6.3-8.2) g/dL Albumin 4.6 (3.5-5.1) g/dL Urine Color Yellow (Yellow) Urine Appearance Clear (Clear) Urine pH 6.5 (5.0-9.0) Ur Specific [place] 1.016 (1.001-1.035) Urine Protein Negative (Negative) mg/dL Urine Glucose (UA) Negative (Negative) mg/dL Urine Ketones Negative (Negative) mg/dL Ur Blood (Man) Negative (Negative) Urine Nitrate Negative (Negative) Urine Bilirubin Negative (Negative) Urine Urobilinogen 0.2 (<2.0) mg/dL Leukocyte Esterase Rfl Negative (Negative) FREDO/UL Blood Type A Positive Antibody Screen Negative <Liz Toledo MD - Last Filed: 03/06/25 21:40> Imaging Data Attestation: I personally reviewed and interpreted this imaging study as follows: < Alona Gaines APRN - Last Filed: 03/06/25 21:52> Radiologist's impression: ITS Impressions Chest X-Ray 03/06/25 19:22 IMPRESSION: 1. No acute pulmonary findings. Atherosclerotic aorta. Hip/Pelvis X-Ray 03/06/25 19:23 IMPRESSION: 1. Acute comminuted intertrochanteric fracture of proximal left femur. Osteopenic bones. Head CT 03/06/25 19:26 IMPRESSION: 1. No acute intracranial lesions. No acute cranial fractures. <Alona Gaines APRN - Last Filed: 03/06/25 21:52> ITS Impressions Chest X-Ray 03/06/25 19:22 IMPRESSION: 1. No acute pulmonary findings. Atherosclerotic aorta. Hip/Pelvis X-Ray 03/06/25 19:23 IMPRESSION: 1. Acute comminuted intertrochanteric fracture of proximal left femur. Osteopenic bones. Head CT 03/06/25 19:26 IMPRESSION: 1. No acute intracranial lesions. No acute cranial fractures. <Liz Toledo MD - Last Filed: 03/06/25 21:40> Discharge Plan Discharge Clinical Impression: Closed hip fracture, Status post total right knee replacement, Status post left partial knee replacement, Hx of ischemic multifocal posterior circulation stroke <Alona Gaines APRN - Last Filed: 03/06/25 21:52> Patient Disposition: Acute Care Hospital <Alona Gaines APRN - Last Filed: 03/06/25 21:52> Condition: Serious <Alona Gaines APRN - Last Filed: 03/06/25 21:52> Patient Language: Irish <Alona Gaines APRN - Last Filed: 03/06/25 21:52> Prescriptions: No Action calcium citrate-vitamin D3 [Citracal + D Maximum] 315 mg-6.25 mcg (250 unit) Tablet 2 tablet PO QAM felodipine 10 mg tablet extended release 24 hr 10 mg PO QAM Qty: 90 3RF lisinopril 10 mg tablet 10 mg PO QAM Qty: 90 3RF Rx Instructions: replaces quinapril. atorvastatin 80 mg tablet 80 mg PO HS Qty: 90 3RF Eliquis 5 mg tablet See Rx Instructions .ROUTE .COMPLEX Qty: 180 3RF Dose Instruction: TAKE 1 TABLET BY MOUTH TWICE DAILY Rx Instructions: TAKE 1 TABLET BY MOUTH TWICE DAILY <Alona Gaines APRN - Last Filed: 03/06/25 21:52> Follow-up/Referrals: Myron Love APRN [Primary Care Provider, Internal Medicine] <Alona Gaines APRN - Last Filed: 03/06/25 21:52>
[2025-03-06] MEDS: MORPHINE SULFATE (*CRX) 4 MG/ML INJ 2 MG IV PUSH ×2 (19:38→20:43)
[2025-03-06 19:48] LABS: Hematocrit 39.2 % (37.0-47.0); Hemoglobin 13.1 g/dL (12.0-15.0); Immature Granulocyte Percent A 0.3 % (0-0.5); Lymphocytes Absolute Auto 1.26 K/mm3 (0.9-3.2); Mean Corpuscular HGB Conc 33.4 g/dl (32-36); Mean Corpuscular Hemoglobin 31.6 pg (26-34); Mean Corpuscular Volume 94.7 fl (80-100); Nucleated Red Blood Cells Absolute Auto 0.000 K/mm3 (0.0-0.012); Nucleated Red Blood Cells Perc 0.0 % (0.0-0.2); Platelet Count Result 298 k/mm3 (150-375); Red Blood Count 4.14 M/mm3 (4.2-5.4); White Blood Count 6.6 K/mm3 (4.5-10.0)
[2025-03-06 20:00] LABS: Alanine Aminotransferase 17 U/L (6-35); Albumin Level 4.6 g/dL (3.5-5.1); Alkaline Phosphatase 82 U/L (38-126); Anion Gap 5 mmol/L (4-12); Aspartate Amino Transferase 33 U/L (14-36); Bilirubin,Total 0.4 mg/dL (0.2-1.3); Blood Urea Nitrogen 18 mg/dL (7-17); Calcium 9.3 mg/dL (8.4-10.2); Carbon Dioxide 26 mmol/L (22-30); Chloride 95 mmol/L (98-107); Estimated CRCL calculation 44 ml/min; Estimated Glomerular Filt Rate > 60; Glucose 145 mg/dL (65-110); Potassium 4.1 mmol/L (3.4-5.0); Sodium 126 mmol/L (137-145); Total Protein 7.5 g/dL (6.3-8.2)
[2025-03-06 20:02] LABS: INR 1.0; Prothrombin Time 13.3 Seconds (11.1-14.7)
[2025-03-06 20:03] LABS: Partial Thromboplastin Time 28.1 Seconds (22.3-36.8)
[2025-03-06 20:11] LABS: Add Urine Microscopic? NO; Appearance Urine Clear (Clear); Glucose Urine UA Negative (Negative); Leukocyte Esterase Ur Negative LEU/UL (Negative); Nitrate Urine Negative (Negative); Specific Grav Ur 1.016 (1.001-1.035)
[2025-03-06] MEDS: HYDROmorphone HCL INJ (*CRX) 1 MG/ML SYR 0.5 MG IV PUSH (23:02)
== END 2025-03-06 23:05 | disposition short-term general hospital (02) ==
PROVIDERS: Emergency Provider Registered Nurse; PCP Nurse Practitioner
DX: S72.142A Displaced intertrochanteric fracture of left femur, initial encounter for closed fracture (principal); W18.30XA Fall on same level, unspecified, initial encounter; Z86.73 Personal history of transient ischemic attack (TIA), and cerebral infarction without residual deficits; Z96.653 Presence of artificial knee joint, bilateral; I10 Essential (primary) hypertension; E78.2 Mixed hyperlipidemia; M85.80 Other specified disorders of bone density and structure, unspecified site
CPT/HCPCS: 36415; 51702; 70450; 71045; 73502; 80053; 81003; 85025; 85610; 85730; 86850; 86900; 86901; 93005; 96374; 96375; 96376; 99285; J1171; J2270